=== PATIENT | male | born 1945 | race African-American/Black ===

== ENCOUNTER 2018-12-28 16:24 | Inpatient (IN) | payer MEDICARE, MEDICAID ==
[~2018-12-28] VITALS: Ht 185.4 cm; Wt 99.8 kg
--- NOTE | 2018-12-28 19:45 | NUR ---
NURSE NOTES: Received pt via [facility] transferred [facility] AOx4, able to ambulate with assist from [facility] to bed, denies any pain, no distress noted. Noted IV L AC #20 patent and intact. No sign of GI bleed at this time. Bed in lowest position and locked, side rails up x 2, call light within reach. Will admit pt to floor.
[2018-12-28 20:00] VITALS: BP 129/76
--- NOTE | 2018-12-28 20:30 | NUR ---
NURSE NOTES: Called and spoke with Dr. Meyer, admission orders obtained and read back. Will carry out orders.
[2018-12-28] MEDS ORDERED: Zolpidem 5mg tab ORAL PRN (20:45)
[2018-12-28] MEDS ORDERED: Albuterol 90mcg Inhaler 8gm INH PRN (20:45)
[2018-12-28] MEDS ORDERED: HYDROcodone/Acetamin 5/325 tab ORAL PRN (20:45)
[2018-12-28] MEDS: Tamsulosin 0.4mg cap ORAL SCH (21:00)
--- NOTE | 2018-12-28 22:00 | NUR ---
NURSE NOTES: Dr. Mary called inquired about pt. Informed MD no GI bleed at this time. Orders given and read back. Will carry out orders.
[2018-12-28] MEDS ORDERED: Sorbitol Solution UD 30ml ORAL ONE (22:15)
[2018-12-28 22:25] LABS: CREATINE KINASE 342 U/L (26-308)
[2018-12-28] MEDS: D5 1/2NS 1,000 ML IV SCH (23:37)
[2018-12-29] VITALS: BP 134/67
[2018-12-29] MEDS ORDERED: Sorbitol Solution UD 30ml ORAL ONE
--- NOTE | 2018-12-29 00:20 | NUR ---
NURSE NOTES: Noted bright red blood from pt rectum. Pt denies any discomfort, no distress noted. VSS.Will notify Dr. Meyer.
--- NOTE | 2018-12-29 00:22 | NUR ---
NURSE NOTES: Called and spoke with Dr. Meyer. Informed MD that pt is bleeding from rectum. No orders given. Will continue to monitor.
--- NOTE | 2018-12-29 00:30 | NUR ---
NURSE NOTES: MRSA culture and urine for Esonophil, K+ random, Na+ random, urinalysis collected and sent to lab. Unable to collect VRE due to rectal bleed.
[2018-12-29 00:53] LABS: APPEARANCE,URINE SLIGHTLY CLOUDY; BILIRUBIN, URINE NEGATIVE (NEGATIVE); COLOR,URINE PALE YELLOW; GLUCOSE, URINE (UA) NEGATIVE (NEGATIVE); KETONES,URINE 2+ (NEGATIVE); LEUKOCYTE ESTERASE ,URINE 2+ (NEGATIVE); NITRITE,URINE POSITIVE (NEGATIVE); PH,URINE 5 (4.5-8.0); PROTEIN,URINE NEGATIVE (NEGATIVE); UROBILINOGEN,URINE NORMAL MG/DL (0.0-1.0)
[2018-12-29] MEDS ORDERED: FERROUS FUMARA324 M1 PO (02:02)
[2018-12-29] MEDS ORDERED: PROSCAR5 MG ORAL (02:02)
[2018-12-29] MEDS ORDERED: NAPROXEN250 M1 PO (02:02)
[2018-12-29] MEDS ORDERED: LIORESAL20 MG ORAL (02:02)
[2018-12-29] MEDS ORDERED: PERMETHRIN60 GM TOPIC (02:02)
[2018-12-29] MEDS ORDERED: FLOMAX0.4 MG ORAL (02:02)
[2018-12-29] MEDS ORDERED: CYMBALTA20 MG ORAL (02:02)
[2018-12-29] MEDS ORDERED: VITAMIN D1000 UNI1 ORAL (02:02)
[2018-12-29] MEDS ORDERED: HYDROCORTISONE-30 GM TOPIC (02:02)
[2018-12-29] MEDS ORDERED: NORCO 10-325 T1 EACH ORAL (02:02)
[2018-12-29] MEDS ORDERED: ALBUTEROL2.5 MG/3 M INH (02:02)
[2018-12-29] MEDS ORDERED: ERGOCALCIF8000 UNIT1 PO (02:02)
[2018-12-29 04:00] VITALS: BP 133/70
--- NOTE | 2018-12-29 05:00 | NUR ---
NURSE NOTES: Pt had another rectal bleed this am. Unable to collect stool OB due pt rushed to go to the restroom. Will endorse to next nurse to collect stool OB.
[2018-12-29] MEDS: HYDROcodone/Acetamin 10/325 tab ORAL PRN ×2 (05:27→18:02)
[2018-12-29] MEDS: NovoLOG Insulin Flexpen SUBQ SCH ×4 (06:30→20:51)
[2018-12-29 06:51] LABS: BASOPHILS % (AUTO) 0.6 % (0.0-2.0); EOSINOPHILS % (AUTO) 2.9 % (0.0-3.0); HEMATOCRIT 37.8 % (42.0-52.0); HEMOGLOBIN 12.1 G/DL (14.2-18.0); INR 0.9 (0.9-1.1); LYMPHOCYTES % (AUTO) 30.8 % (20.0-45.0); MEAN CORPUSCULAR VOLUME 108 FL (80-99); MONOCYTES % (AUTO) 11.8 % (1.0-10.0); NEUTROPHILS % (AUTO) 53.9 % (45.0-75.0); PLATELET COUNT 148 K/UL (150-450); RED BLOOD COUNT 3.49 M/UL (4.70-6.10); RED CELL DISTRIBUTION WIDTH 11.8 % (11.6-14.8); WHITE BLOOD COUNT 4.7 K/UL (4.8-10.8)
[2018-12-29 07:16] LABS: ANION GAP 8 mmol/L (5-15); BLOOD UREA NITROGEN 18 mg/dL (7-18); CALCIUM 8.7 MG/DL (8.5-10.1); CARBON DIOXIDE 29 MMOL/L (21-32); CHLORIDE 109 MMOL/L (98-107); CREATININE 1.2 MG/DL (0.55-1.30); POTASSIUM 3.9 MMOL/L (3.5-5.1); SODIUM 146 MMOL/L (136-145)
[2018-12-29 07:19] LABS: LACTATE DEHYDROGENASE 181 U/L (81-234); PHOSPHORUS 2.9 MG/DL (2.5-4.9)
--- NOTE | 2018-12-29 07:20 | NUR ---
NURSE NOTES: Report received from GURU Virgen. Pt. awake finishing up with breakfast. In RA, denies any pain or SOB. L AC 20g IV running D51/2 Ns @75. Bed on lowest position, side rails upx2. Brakes engaged. Call light within easy reach.
[2018-12-29 07:21] LABS: % IRON SATURATION 33 % (15-50); IRON 73 ug/dL (50-175); TOTAL IRON BINDING CAPACITY 219 ug/dL (250-450)
--- NOTE | 2018-12-29 07:30 | NUR ---
NURSE NOTES: Instructed pt next time he needs to have a stool sample to collect in the hat. Pt verbalized understanding of instruction. Endorsed to next nurse.
--- NOTE | 2018-12-29 07:40 | NUR ---
HAND-OFF: Report given to GURU Garza. Pt in stable condition.
[2018-12-29 08:00] VITALS: BP 118/73
[2018-12-29] MEDS ORDERED: Fleet's Enema 133ml RECTAL SCH (09:00)
[2018-12-29] MEDS ORDERED: Bisacodyl EC 5mg tab ORAL SCH (09:00)
--- NOTE | 2018-12-29 09:08 | General Progress Note ---
Assessment/Plan Assessment/Plan: GI CONSULT Assessment - Rectal bleeding - macrocytosis with mild pancytopenia, ? MDS - Arthritis Recommendations - Clear liquid - GI preparation - colonoscopy tomorrow - check TSH Thank you Zak Alaniz MD Subjective Allergies: Coded Allergies: No Known Allergies (Unverified , 12/28/18) Objective Last 24 Hour Vital Signs Date Time Temp Pulse Resp B/P (MAP) Pulse Ox O2 Delivery O2 Flow Rate FiO2 12/29/18 08:00 97.7 55 18 118/73 (88) 97 12/29/18 04:00 97.8 50 18 133/70 (91) 97 12/29/18 00:00 98.4 48 17 134/67 (89) 96 12/28/18 22:42 Room Air 12/28/18 20:00 97.8 49 18 129/76 (93) 98 Intake and Output 12/28/18 12/29/18 19:00 07:00 Intake Total 775 ml Output Total 450 ml Balance 325 ml Intake Oral 250 ml IV Total 525 ml Output Urine Total 450 ml # Bowel Movements 1 Laboratory Tests 12/28/18 21:45: Uric Acid 3.5, Total Creatine Kinase 342H 12/29/18 00:00: Urine Color Pale yellow, Urine Appearance Slightly cloudy, Urine pH 5, Urine Specific [place] 1.015, Urine Protein Negative, Urine Glucose (UA) Negative, Urine Ketones 2+H, Urine Blood 1+H, Urine Nitrite PositiveH, Urine Bilirubin Negative, Urine Urobilinogen Normal, Urine Leukocyte Esterase 2+H, Urine RBC 0- 2H, Urine WBC 40-60H, Urine Squamous Epithelial Cells None, Urine Bacteria Few, Urine Eosinophils Few seen, Urine Random Sodium 200H, Urine Potassium Timed 40 12/29/18 05:20: White Blood Count 4.7L, Red Blood Count 3.49L, Hemoglobin 12.1L, Hematocrit 37.8L, Mean Corpuscular Volume 108H, Mean Corpuscular Hemoglobin 34.6H, Mean Corpuscular Hemoglobin Concent 31.9L, Red Cell Distribution Width 11.8, Platelet Count 148L, Mean Platelet Volume 7.1, Neutrophils (%) (Auto) 53.9, Lymphocytes (%) (Auto) 30.8, Monocytes (%) (Auto) 11.8H, Eosinophils (%) (Auto) 2.9, Basophils (%) (Auto) 0.6, Erythrocyte Sedimentation Rate 41H, Reticulocyte Count [Pending], Prothrombin Time 10.1, Prothromb Time International Ratio 0.9, Activated Partial Thromboplast Time 29, Sodium Level 146H, Potassium Level 3.9, Chloride Level 109H, Carbon Dioxide Level 29, Anion Gap 8, Blood Urea Nitrogen 18, Creatinine 1.2, Estimat Glomerular Filtration Rate , Glucose Level 77, Calcium Level 8.7, Phosphorus Level 2.9, Magnesium Level 1.8, Iron Level 73, Total Iron Binding Capacity 219L, Percent Iron Saturation 33, Unsaturated Iron Binding 146, Lactate Dehydrogenase 181, C-Reactive Protein, Quantitative < 0.4, Carcinoembryonic Antigen [Pending], Vitamin B12 Level 404, Folate 15.6 Height (Feet): 5 Height (Inches): 11.00 Weight (Pounds): 220 Zak Alaniz MD Dec 29, 2018 09:08
[2018-12-29] MEDS ORDERED: Nulytely 4L ORAL SCH (10:00)
--- NOTE | 2018-12-29 11:41 | NUR ---
NURSE NOTES: Per Pt. never had DM. Notified Dr. Sethi, he spoke to Pt. Confirmed no need for fingerstick blood sugar check.
[2018-12-29 12:00] VITALS: BP 131/68
--- NOTE | 2018-12-29 12:18 | Consultation ---
History of Present Illness General Date patient seen: Dec 29, 2018 Present Illness HPI 73 year old male with hx of prostate ca, s/p RT recently presented to [facility] with cc of rectal bleeding. After initial w/u pt was transferred to [facility] for further w/u. Currently he is sitting up in the bed and complaining why he can't eat. No more bloody stool since arrival at [facility]. Allergies: Coded Allergies: No Known Allergies (Unverified , 12/28/18) Medication History Scheduled Baclofen (Baclofen), 10 MG ORAL THREE TIMES A DAY, (Reported) Cholecalciferol (Vitamin D3)* (Vitamin D*), 2,000 UNITS ORAL ONCE A WEEK, ( Reported) Duloxetine (Cymbalta), 20 MG ORAL BID, (Reported) Ergocalciferol (Vitamin D2) (Ergocalciferol), 50,000 UNIT PO DAILY, (Reported) Ferrous Fumarate (Ferrous Fumarate), 325 MG PO DAILY, (Reported) Finasteride* (Proscar*), 5 MG ORAL DAILY, (Reported) Naproxen (Naproxen), 500 MG PO BID, (Reported) Permethrin* (Elimite*), 1 APPLIC TOPIC QHS, (Reported) Tamsulosin HCl (Flomax), 0.4 MG ORAL DAILY, (Reported) Scheduled PRN Albuterol Sulfate* (Albuterol Sulfate Hhn*), 3 ML INH Q6H PRN for Shortness of Breath, (Reported) Hydrocodone Bit/Acetaminophen 10-325* ([place] 10-325*), 1 TAB ORAL Q6H PRN for For Pain, (Reported) Hydrocortisone/Aloe Vera 1%* (Hydrocortisone-Aloe 1% Cream*), 1 APPLIC TOPIC Q6H PRN for Itching, (Reported) Patient History Healthcare decision maker N Resuscitation status Full Code Advanced Directive on File No Past Medical/Surgical History Past Medical/Surgical History: (1) Prostate cancer (2) Chronic renal disease (3) BPH (benign prostatic hyperplasia) (4) Diabetes mellitus (5) GI bleed (6) Hypertensive heart disease (7) History of hypertension Review of Systems Constitutional: Reports: no symptoms Physical Exam General Appearance: WD/WN, no apparent distress Lines, tubes and drains: peripheral HEENT: normocephalic, atraumatic Neck: non-tender, normal alignment Respiratory/Chest: chest wall non-tender, lungs clear Breasts: no masses Cardiovascular/Chest: normal rate Abdomen: normal bowel sounds, non tender Genitourinary/Rectal: normal genital exam Extremities: normal range of motion Last 24 Hour Vital Signs Date Time Temp Pulse Resp B/P (MAP) Pulse Ox O2 Delivery O2 Flow Rate FiO2 12/29/18 09:00 Room Air 12/29/18 08:00 97.7 55 18 118/73 (88) 97 12/29/18 04:00 97.8 50 18 133/70 (91) 97 12/29/18 00:00 98.4 48 17 134/67 (89) 96 12/28/18 22:42 Room Air 12/28/18 20:00 97.8 49 18 129/76 (93) 98 Intake and Output 12/28/18 12/29/18 19:00 07:00 Intake Total 775 ml Output Total 450 ml Balance 325 ml Intake Oral 250 ml IV Total 525 ml Output Urine Total 450 ml # Bowel Movements 1 Laboratory Tests Test 12/28/18 21:45 12/29/18 00:00 12/29/18 05:20 Uric Acid 3.5 MG/DL (2.6-7.2) Total Creatine Kinase 342 U/L (26-308) H Urine Color Pale yellow Urine Appearance Slightly cloudy Urine pH 5 (4.5-8.0) Urine Specific [place] 1.015 (1.005-1.035) Urine Protein Negative (NEGATIVE) Urine Glucose (UA) Negative (NEGATIVE) Urine Ketones 2+ (NEGATIVE) H Urine Blood 1+ (NEGATIVE) H Urine Nitrite Positive (NEGATIVE) H Urine Bilirubin Negative (NEGATIVE) Urine Urobilinogen Normal MG/DL (0.0-1.0) Urine Leukocyte Esterase 2+ (NEGATIVE) H Urine RBC 0-2 /HPF (0 - 0) H Urine WBC 40-60 /HPF (0 - 0) H Urine Squamous Epithelial Cells None /LPF (NONE/OCC) Urine Bacteria Few /HPF (NONE) Urine Eosinophils Few seen (NONE SEEN) Urine Random Sodium 200 mmol/L (20-110) H Urine Potassium Timed 40 mmol/L (12-62) White Blood Count 4.7 K/UL (4.8-10.8) L Red Blood Count 3.49 M/UL (4.70-6.10) L Hemoglobin 12.1 G/DL (14.2-18.0) L Hematocrit 37.8 % (42.0-52.0) L Mean Corpuscular Volume 108 FL (80-99) H Mean Corpuscular Hemoglobin 34.6 PG (27.0-31.0) H Mean Corpuscular Hemoglobin Concent 31.9 G/DL (32.0-36.0) L Red Cell Distribution Width 11.8 % (11.6-14.8) Platelet Count 148 K/UL (150-450) L Mean Platelet Volume 7.1 FL (6.5-10.1) Neutrophils (%) (Auto) 53.9 % (45.0-75.0) Lymphocytes (%) (Auto) 30.8 % (20.0-45.0) Monocytes (%) (Auto) 11.8 % (1.0-10.0) H Eosinophils (%) (Auto) 2.9 % (0.0-3.0) Basophils (%) (Auto) 0.6 % (0.0-2.0) Erythrocyte Sedimentation Rate 41 MM/HR (0-20) H Reticulocyte Count 1.8 % (0.5-2.0) Prothrombin Time 10.1 SEC (9.30-11.50) Prothromb Time International Ratio 0.9 (0.9-1.1) Activated Partial Thromboplast Time 29 SEC (23-33) Sodium Level 146 MMOL/L (136-145) H Potassium Level 3.9 MMOL/L (3.5-5.1) Chloride Level 109 MMOL/L (98-107) H Carbon Dioxide Level 29 MMOL/L (21-32) Anion Gap 8 mmol/L (5-15) Blood Urea Nitrogen 18 mg/dL (7-18) Creatinine 1.2 MG/DL (0.55-1.30) Estimat Glomerular Filtration Rate mL/min (>60) Glucose Level 77 MG/DL (74-106) Calcium Level 8.7 MG/DL (8.5-10.1) Phosphorus Level 2.9 MG/DL (2.5-4.9) Magnesium Level 1.8 MG/DL (1.8-2.4) Iron Level 73 ug/dL (50-175) Total Iron Binding Capacity 219 ug/dL (250-450) L Percent Iron Saturation 33 % (15-50) Unsaturated Iron Binding 146 ug/dL (112-346) Lactate Dehydrogenase 181 U/L (81-234) C-Reactive Protein, Quantitative < 0.4 mg/dL (0.00-0.90) Carcinoembryonic Antigen Pending Vitamin B12 Level 404 PG/ML (193-986) Folate 15.6 NG/ML (8.6-58.9) Height (Feet): 5 Height (Inches): 11.00 Weight (Pounds): 220 Medications Current Medications Medications (Trade) Dose Ordered Sig/Pee Route PRN Reason Start Time Stop Time Status Last Admin Dose Admin Acetaminophen/ Hydrocodone Bitart ([place] 10/325) 1 tab Q6HR PRN ORAL Pain Scale (6-10) 12/28/18 20:45 01/04/19 20:44 12/29/18 05:27 Acetaminophen/ Hydrocodone Bitart ([place] 5/325) 1 tab Q6H PRN ORAL For Pain 12/28/18 20:45 01/04/19 20:44 Albuterol Sulfate (Proventil MDI) 2 puff Q6HR PRN INH Shortness of Breath 12/28/18 20:45 01/27/19 20:44 Baclofen (Lioresal) 10 mg THREE TIMES A DAY PRN ORAL Shortness of Breath 12/28/18 20:45 01/27/19 20:44 Dextrose (Dextrose 50%) 25 ml Q30M PRN IV Hypoglycemia 12/28/18 21:15 01/27/19 21:14 Dextrose (Dextrose 50%) 50 ml Q30M PRN IV Hypoglycemia 12/28/18 21:15 01/27/19 21:14 Dextrose/Sodium Chloride 1,000 ml @ 75 mls/hr [id number] IV 12/28/18 22:15 01/27/19 22:14 12/28/18 23:37 Duloxetine HCl (Cymbalta) 20 mg BID ORAL 12/29/18 09:00 01/28/19 08:59 12/29/18 08:35 Finasteride (Proscar) 5 mg DAILY ORAL 12/29/18 09:00 01/28/19 08:59 12/29/18 08:35 Insulin Aspart (NovoLOG) BEFORE MEALS AND HS SUBQ 12/29/18 06:30 01/28/19 06:29 Ondansetron HCl (Zofran) 4 mg Q4H PRN IVP Nausea & Vomiting 12/29/18 02:15 01/28/19 02:14 Sodium Phosphate (Fleet's Sodium Phosl Enema) 133 ml ONCE RECTAL 12/30/18 06:00 12/30/18 07:30 Tamsulosin HCl (Flomax) 0.4 mg BEDTIME ORAL 12/28/18 21:00 01/27/19 20:59 12/28/18 21:00 Zolpidem Tartrate (Ambien) 5 mg HSPRN PRN ORAL Insomnia 12/28/18 20:45 01/04/19 20:44 Assessment/Plan Problem List: (1) History of hypertension ICD Codes: Z86.79 - Personal history of other diseases of the circulatory system SNOMED: 343850029 (2) Hypertensive heart disease ICD Codes: I11.9 - Hypertensive heart disease without heart failure SNOMED: 95020409 (3) BPH (benign prostatic hyperplasia) ICD Codes: N40.0 - Benign prostatic hyperplasia without lower urinary tract symptoms SNOMED: 168485691 (4) Chronic renal disease ICD Codes: N18.9 - Chronic kidney disease, unspecified SNOMED: 396022748 (5) Prostate cancer ICD Codes: C61 - Malignant neoplasm of prostate SNOMED: 223673466 (6) S/P radiation therapy ICD Codes: Z92.3 - Personal history of irradiation SNOMED: 299623368, 248366346, 536107506 Assessment/Plan: NPO GI evaluation prbc prn check electrolytes symptomatic treatment dvt prophylaxis. Apoorva Sethi MD Dec 29, 2018 12:17
[2018-12-29] MEDS: D5 1/2NS 1,000 ML IV SCH (13:38)
--- NOTE | 2018-12-29 15:00 | NUR ---
NURSE NOTES: Refusing to drink Golytely. Educated the need. Will continue to encourage.
--- NOTE | 2018-12-29 15:59 | NUR ---
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 97.8 HR 49 RR 18 B/P 129/78 H/H 12.1/37.8 WBC 4.7 ESR 41 TCK 342 NA 146 TIBC 219 UA+ KETONES,PROTEIN,NITRITES,LEUKOCYTE ESTERASE,WBC,RBC IS: IVF D5NS @75ML/HR CYMBALTA PO MED/SURG STATUS MED/SURG STATUS DCP RETURN HOME
[2018-12-29 16:00] VITALS: BP 127/58
--- NOTE | 2018-12-29 16:30 | Consultation ---
DATE OF CONSULTATION: 12/29/2018 GASTROENTEROLOGY CONSULTATION CONSULTING PHYSICIAN: Zak Alaniz M.D. CHIEF COMPLAINT: I was asked to see this patient by Dr. Caden Meyer for evaluation of gastrointestinal bleeding. HISTORY OF PRESENT ILLNESS: The patient is a pleasant 73-year-old, man, who is in this hospital for the first time. He complains of a 3-day history of hematochezia, which is dark red. The hematochezia is painless and for the first time. He states his last colonoscopy was in early 2018 at [facility]. When I reviewed the record there and there is no such procedure in the hospital. The patient cannot recall where else this had been done, but he is thinking about it. The patient denies any significant abdominal pain although he has a minimal degree of discomfort in the pelvic area. He has not had a history of hemorrhoids. He had an extensive past history of smoking. PAST MEDICAL HISTORY: History of diabetes, history of hypertension, history of arthritis and back and joint problems requiring a walker. MEDICATIONS AT HOME: Include albuterol, acetaminophen, baclofen, Cymbalta, vitamin D, iron, Proscar, Naprosyn, , Flomax. FAMILY HISTORY: Noncontributory. SOCIAL HISTORY: The patient has had an extensive history of smoking. He still smokes 5 cigarettes a day. He does not drink alcohol. ALLERGIES: None. REVIEW OF SYSTEMS: Otherwise negative. PHYSICAL EXAMINATION: GENERAL: A pleasant, man, seen in his room. HEENT: Normocephalic and atraumatic. Sclerae anicteric. Dentition was poor. NECK: Supple. CHEST: Clear to auscultation. CARDIOVASCULAR: Revealed a regular rate. ABDOMEN: Soft with good bowel sounds. There is no organomegaly. RECTAL: Revealed brown to dark red stools. EXTREMITIES: Revealed no edema. LABORATORY DATA: Noted. ASSESSMENT: This patient presents with hematochezia with a relatively preserved hematocrit. Differential diagnosis will include ischemic colitis versus hemorrhoidal bleeding versus diverticular bleeding. Colonic pathology such as malignancy or polyps will obvious be a consideration as well. There patient to undergo a colonoscopy at this time to evaluate the site and nature of bleeding in order to determine treatment algorithm. The indications, risks, alternatives, and possible complications of the procedure were explained to the patient and informed consent was obtained. In addition, the patient appears to have some degree of macrocytosis with normal B12 level and folic acid. He also has some degree of mild pancytopenia. I will consider a Hematology consultation to determine if the patient has some myelodysplastic syndrome. RECOMMENDATIONS: Per above discussion and per orders in the chart. The patient will be scheduled for colonoscopy tomorrow. Thank you for asking me to participate in the care of this patient. Zak Alaniz M.D. DR: ROCK JOB#: [id number] CC:
--- NOTE | 2018-12-29 17:27 | History & Physical ---
History and Physical History & Physicial Dictated for Int Med-Dr Meyer no. [id number]. Arsen Munoz MD Dec 29, 2018 17:27
--- NOTE | 2018-12-29 18:45 | History and Physical Report ---
DATE OF ADMISSION: 12/28/2018 CHIEF COMPLAINT: The patient is a 73-year-old male, who presents with a chief complaint of rectal bleeding. HISTORY OF PRESENT ILLNESS: Began yesterday, December 28, 2018. The patient began to experience rectal bleeding. The blood is dark red in color. The patient initially presented to [facility] emergency room. The patient was transferred to [facility] for insurance purposes. The patient is admitted for gastrointestinal hemorrhage. REVIEW OF SYSTEMS: CONSTITUTIONAL: The patient denies weight loss or weight gain. The patient denies fevers or chills. HEENT: The patient denies ear or throat pain. The patient denies headache. CARDIOVASCULAR: The patient denies palpitations or chest pain. CHEST: The patient denies wheeze or shortness of breath. ABDOMINAL: The patient denies nausea, vomiting, diarrhea, or constipation. The patient does complain of rectal bleeding as above. GENITOURINARY: The patient denies dysuria or increased frequency of urination. NEUROMUSCULAR: The patient denies seizures or generalized weakness. PAST MEDICAL HISTORY: Significant for, 1. Chronic obstructive pulmonary disease. 2. Benign prostatic hypertrophy. 3. Chronic low back pain. PAST SURGICAL HISTORY: The patient denies. CURRENT MEDICATIONS: 1. Cymbalta 20 mg p.o. twice daily. 2. Iron sulfate 325 mg p.o. daily. 3. Proscar 5 mg p.o. daily. 4. Vitamin D2 50,000 units 1 tablet p.o. weekly. 5. Albuterol metered-dose inhaler two puffs p.o. q.i.d. p.r.n. 6. Naprosyn 500 mg one tablet p.o. twice daily. 7. [place] 10/325 mg one tablet p.o. q.6 h. p.r.n. 8. Flomax 0.4 mg p.o. daily. 9. Tramadol 50 mg p.o. 1 tablet p.o. twice daily. ALLERGIES: No known drug allergies. SOCIAL HISTORY: The patient is single and lives alone. The patient admits to tobacco use of one pack per day. The patient denies alcohol use. PHYSICAL EXAMINATION: VITAL SIGNS: Temperature 98.4, respirations 20, pulse 50, and blood pressure 158/74. GENERAL: The patient is a well-developed and well-nourished male, in no apparent distress. HEENT: Eyes, pupils are equal and responsive to light and accommodation. Extraocular movements are intact. NECK: Supple without lymphadenopathy. CHEST: Lungs are clear to auscultation bilaterally without wheezes or rales. CARDIOVASCULAR: Regular rhythm and rate. S1 and S2 are normal without murmurs, rubs, or gallops. ABDOMEN: Soft, nontender, and nondistended. Positive bowel sounds. No evidence of hepatosplenomegaly. Currently, no rebound or guarding noted. EXTREMITIES: Negative for clubbing, cyanosis, or edema. RECTAL/GENITAL: Refused. NEUROLOGIC: Cranial nerves II through XII are grossly intact without focal deficits. Motor strength is 5/5 bilaterally. Deep tendon reflexes are 2+ plantar. LABORATORY STUDIES: WBC 4.6, hemoglobin 11.0, hematocrit 35.1, and platelets 144,000. Sodium 143, potassium 3.8, chloride 107, CO2 28, BUN 20, and creatinine 1.1. Glucose 93. ASSESSMENT: This is a 73-year-old male. 1. Rectal hemorrhage. 2. Chronic obstructive pulmonary disease. 3. Benign prostatic hypertrophy. 4. Low back pain. 5. History of prostate cancer. TREATMENT: 1. Rectal hemorrhage. A Gastroenterology consultation has been obtained with Dr. Zak Alaniz. The patient is scheduled for colonoscopy. We will follow recommendations of Gastroenterology. 2. Chronic obstructive pulmonary disease. Continue albuterol metered-dose inhaler as above. 3. Benign prostatic hypertrophy. Continue Flomax and Proscar as above. 4. Low back pain. Continue Naprosyn as above. 5. History of prostate cancer. Arsen Munoz M.D. DR: ROBERTO JOB#: [id number] CC:
--- NOTE | 2018-12-29 19:11 | NUR ---
NURSE NOTES: Clarified with pharmacist Edelmira duplicate order for Cymbalta. Duplicate to be cancelled by pharmacist.
--- NOTE | 2018-12-29 19:30 | NUR ---
NURSE NOTES: Received pt in bed, AOx4, denies any pain, no rectal bleeding noted at this time. IV L AC patent and intact. IV fluid infusing as ordered. Instructed pt that me needs to finish drinking the Golytely by 12 midnight. Encouraged pt to keep drinking Golytely. Verbalized understanding. Bed in lowest position and locked, side rails up x 2, call light within reach. Will continue to monitor.
--- NOTE | 2018-12-29 19:45 | NUR ---
HAND-OFF: Report given to GURU Virgen. Pt in stable condition. Plan of care endorsed.
[2018-12-29 20:00] VITALS: BP 131/78
[2018-12-29] MEDS: Tamsulosin 0.4mg cap ORAL SCH ×2 (20:49→20:52)
[2018-12-30] VITALS (8 sets, daily range): BP systolic 90–144; BP diastolic 52–80
[2018-12-30] MEDS: HYDROcodone/Acetamin 10/325 tab ORAL PRN (00:45)
[2018-12-30] MEDS: D5 1/2NS 1,000 ML IV SCH (00:55)
--- NOTE | 2018-12-30 05:57 | NUR ---
NURSE NOTES: Pt drank 3000 ml of Golytely by midnight. Fleet enema given. Bowel return clear. No rectal bleed noted at this time.
[2018-12-30] MEDS ORDERED: Fleet's Enema 133ml RECTAL SCH (06:00)
[2018-12-30] MEDS: NovoLOG Insulin Flexpen SUBQ SCH ×2 (06:30→10:42)
--- NOTE | 2018-12-30 06:45 | NUR ---
NURSE NOTES: Taken down to GI lab for procedure. Pt denies any pain, no distress noted. IV patent and intact. Endorsed pt to transporter.
[2018-12-30] MEDS ORDERED: NS 500ML IVPB ONE (06:50)
[2018-12-30 06:56] LABS: ANION GAP 5 mmol/L (5-15); BLOOD UREA NITROGEN 9 mg/dL (7-18); CALCIUM 8.6 MG/DL (8.5-10.1); CARBON DIOXIDE 30 MMOL/L (21-32); CHLORIDE 109 MMOL/L (98-107); CREATININE 1.1 MG/DL (0.55-1.30); POTASSIUM 3.7 MMOL/L (3.5-5.1); SODIUM 144 MMOL/L (136-145)
[2018-12-30] MEDS ORDERED: Lidocaine 1% MPF 10mg/ml 5ml ONE (07:00)
[2018-12-30] MEDS ORDERED: Propofol 200mg/20ml IV ONE (07:00)
[2018-12-30 07:06] LABS: BASOPHILS % (AUTO) 0.6 % (0.0-2.0); EOSINOPHILS % (AUTO) 2.6 % (0.0-3.0); HEMATOCRIT 35.3 % (42.0-52.0); HEMOGLOBIN 11.6 G/DL (14.2-18.0); LYMPHOCYTES % (AUTO) 33.3 % (20.0-45.0); MEAN CORPUSCULAR VOLUME 107 FL (80-99); MONOCYTES % (AUTO) 11.1 % (1.0-10.0); NEUTROPHILS % (AUTO) 52.4 % (45.0-75.0); PLATELET COUNT 141 K/UL (150-450); RED BLOOD COUNT 3.31 M/UL (4.70-6.10); RED CELL DISTRIBUTION WIDTH 11.6 % (11.6-14.8); WHITE BLOOD COUNT 4.6 K/UL (4.8-10.8)
--- NOTE | 2018-12-30 07:06 | General Progress Note ---
Assessment/Plan Assessment/Plan: Assessment - Rectal bleeding - macrocytosis with mild pancytopenia, ? MDS - Arthritis Recommendations - NPO - colonoscopy today - f/u TSH --> normal Subjective Allergies: Coded Allergies: No Known Allergies (Unverified , 12/28/18) Subjective Feels OK (++) BM with prep bleeding resolve POST PROCEDURE ADDENDUM Colonoscopy: - Diminutive polyps removed (TV colonx2, Descending colon x2, sigmoid colon) - mild to mod diverticulosis (likely source of LGIB) - No blood seen in GI tract Objective Last 24 Hour Vital Signs Date Time Temp Pulse Resp B/P (MAP) Pulse Ox O2 Delivery O2 Flow Rate FiO2 12/30/18 04:00 98.7 55 20 115/66 (82) 96 12/30/18 00:00 97.9 50 20 127/62 (83) 96 12/29/18 21:00 Room Air 12/29/18 20:00 97.6 51 18 131/78 (95) 96 12/29/18 16:00 97.8 54 18 127/58 (81) 96 12/29/18 12:00 97.4 50 18 131/68 (89) 98 12/29/18 09:00 Room Air 12/29/18 08:00 97.7 55 18 118/73 (88) 97 Intake and Output 12/29/18 12/30/18 18:59 06:59 Intake Total 915 ml 3975 ml Balance 915 ml 3975 ml Intake Oral 600 ml 3000 ml IV Total 75 ml 975 ml Other 240 ml # Voids 3 # Bowel Movements 3 4 Laboratory Tests 12/30/18 05:20: White Blood Count [Pending], Red Blood Count [Pending], Hemoglobin [Pending], Hematocrit [Pending], Mean Corpuscular Volume [Pending], Mean Corpuscular Hemoglobin [Pending], Mean Corpuscular Hemoglobin Concent [Pending], Red Cell Distribution Width [Pending], Platelet Count [Pending], Mean Platelet Volume [ Pending], Neutrophils (%) (Auto) [Pending], Lymphocytes (%) (Auto) [Pending], Monocytes (%) (Auto) [Pending], Eosinophils (%) (Auto) [Pending], Basophils (%) (Auto) [Pending], Sodium Level 144, Potassium Level 3.7, Chloride Level 109H, Carbon Dioxide Level 30, Anion Gap 5, Blood Urea Nitrogen 9, Creatinine 1.1, Estimat Glomerular Filtration Rate , Glucose Level 96, Calcium Level 8.6, Thyroid Stimulating Hormone (TSH) 1.709 Height (Feet): 6 Height (Inches): 1.00 Weight (Pounds): 220 Objective WDWN NCAT supple CTA RRR Abd soft NT ND no edema non focal Zak Alaniz MD Dec 30, 2018 07:06
--- NOTE | 2018-12-30 07:07 | Pre-Procedure Note/Attestation ---
Pre-Procedure Note/Attestation Complete Prior to Procedure Planned Procedure: not applicable Procedure Narrative: colon Indications for Procedure Pre-Operative Diagnosis: brbpr Attestation I attest that I discussed the nature of the procedure; its benefits; risks and complications; and alternatives (and the risks and benefits of such alternatives ), prior to the procedure, with the patient (or the patient's legal electronics parts sales representative). I attest that, if there was a reasonable possibility of needing a blood transfusion, the patient (or the patient's legal electronics parts sales representative) was given the [facility] standardized written summary, pursuant to the Zay Altheimer Blood Safety Act ([place] Health and Safety Code # 1645, as amended). I attest that I re-evaluated the patient just prior to the surgery and that there has been no change in the patient's H&P, except as documented below: Zak Alaniz MD Dec 30, 2018 07:07
--- NOTE | 2018-12-30 07:16 | Anethesia Preoperative Eval ---
Anesthesia Pre-op PMH/ROS General Date of Evaluation: Dec 30, 2018 Time of Evaluation: 06:50 Anesthesiologist: Velma East CRNA ASA Score: ASA 3 Mallampati Score Class I : Soft palate, uvula, fauces, pillars visible Class II: Soft palate, uvula, fauces visible Class III: Soft palate, base of uvula visible Class IV: Only hard plate visible Mallampati Classification: Class III Surgeon: Gabe Anesthesia History: none Social History: smoking Family History: no anesthesia problems Allergies: Coded Allergies: No Known Allergies (Unverified , 12/28/18) Medications: see eMAR Patient NPO?: Yes NPO Date: Dec 30, 2018 NPO Time: 00:00 Past Medical History Cardiovascular: Reports: HTN, CAD, other - hypercholesterolemia Pulmonary: Reports: asthma, COPD Gastrointestinal/Genitourinary: Reports: GERD, CRI, other - prostate CA s/p radiation Endocrine: Reports: DM HEENT: Reports: other - hx of ruptured globe Hematology/Immune: Reports: anemia Musculoskeletal/Integumentary: Reports: OA, other - Lower back pain PMH Narrative: see above PSxH Narrative: tonsillectomy; ruptured globe Anesthesia Pre-op Phys. Exam Physician Exam Last Vital Signs Date Time Temp Pulse Resp B/P (MAP) Pulse Ox O2 Delivery O2 Flow Rate FiO2 12/30/18 04:00 98.7 55 20 115/66 (82) 96 12/29/18 21:00 Room Air Constitutional: NAD Cardiovascular: RRR Respiratory: CTA Gastrointestinal: S/NT/ND Airway Exam Mallampati Score: Class III MO: full Neck: FROM TMD: > 3 FB ROM: full Teeth: missing Dentures: upper Anesthesia Pre-op A/P Labs Hematology Test 12/30/18 05:20 White Blood Count 4.6 K/UL (4.8-10.8) L Red Blood Count 3.31 M/UL (4.70-6.10) L Hemoglobin 11.6 G/DL (14.2-18.0) L Hematocrit 35.3 % (42.0-52.0) L Mean Corpuscular Volume 107 FL (80-99) H Mean Corpuscular Hemoglobin 35.1 PG (27.0-31.0) H Mean Corpuscular Hemoglobin Concent 32.8 G/DL (32.0-36.0) Red Cell Distribution Width 11.6 % (11.6-14.8) Platelet Count 141 K/UL (150-450) L Mean Platelet Volume 8.7 FL (6.5-10.1) Neutrophils (%) (Auto) 52.4 % (45.0-75.0) Lymphocytes (%) (Auto) 33.3 % (20.0-45.0) Monocytes (%) (Auto) 11.1 % (1.0-10.0) H Eosinophils (%) (Auto) 2.6 % (0.0-3.0) Basophils (%) (Auto) 0.6 % (0.0-2.0) Chemistry Test 12/30/18 05:20 Sodium Level 144 MMOL/L (136-145) Potassium Level 3.7 MMOL/L (3.5-5.1) Chloride Level 109 MMOL/L (98-107) H Carbon Dioxide Level 30 MMOL/L (21-32) Anion Gap 5 mmol/L (5-15) Blood Urea Nitrogen 9 mg/dL (7-18) Creatinine 1.1 MG/DL (0.55-1.30) Estimat Glomerular Filtration Rate mL/min (>60) Glucose Level 96 MG/DL (74-106) Calcium Level 8.6 MG/DL (8.5-10.1) Thyroid Stimulating Hormone (TSH) 1.709 uiU/mL (0.358-3.740) Studies Pre-op Studies: EKG - NSR Risk Assessment & Plan Assessment: ASA 3, ok to proceed Plan: MAC Status Change Before Surgery: No Pre-Antibiotics Given Within 1 Hr of Incision: Velma Mcnally CRNA Dec 30, 2018 07:16
--- NOTE | 2018-12-30 07:25 | NUR ---
HAND-OFF: Report given to GURU Carpenter. Pt off the unit.
--- NOTE | 2018-12-30 07:39 | Endoscopy Procedure Note ---
Endoscopy Procedure Note General Indication for Procedure: LGIB Procedures Performed: colonoscopy Operative Findings/Diagnosis: colon polyps (TV x2, Desc, Desc #2, sig) Specimen: yes Pt Tolerated Procedure Well: Yes Estimated Blood Loss: none Anesthesia Anesthesiologist: see report Anesthesia: MAC Medications Medication Given: see anesthesia record Inserted Devices Implant(s) used?: No GI Core Measures 50 yrs or older w/o bx or poly: Not Applicable 10yrs. F/U recommended: Not Applicable Zak Alaniz MD Dec 30, 2018 07:39
--- NOTE | 2018-12-30 07:40 | Brief Operative Note ---
Immediate Post Operative Note Operative Note Chief Complaint: BRB Pre-op Diagnosis: brbpr Procedure: colon Bx Post-op Diagnosis: Polyps, diverticulosis Surgeon: patricia Anesthesiologist: see report Anesthesia: moderate sedation Specimen: yes Complications: none Fluids: recorded Implant(s) used?: No Zak Alaniz MD Dec 30, 2018 07:40
--- NOTE | 2018-12-30 07:42 | NUR ---
NURSE NOTES: Received pt from GURU Virgen. Pt off unit getting colonoscopy. Awaiting pt arrival.
--- NOTE | 2018-12-30 07:51 | Immediate Post-Op Evaluation ---
Immediate Post-Op Evalulation Immediate Post-Op Evalulation Procedure: Colonoscopy with biopsies Date of Evaluation: Dec 30, 2018 Time of Evaluation: 07:50 IV Fluids: 0.9 NS 250 ml Blood Pressure Systolic: 090 Blood Pressure Diastolic: 53 Pulse Rate: 51 Respiratory Rate: 14 O2 Sat by Pulse Oximetry: 100 Temperature (Fahrenheit): 98.0 Pain Score (1-10): 0 Nausea: No Vomiting: No Complications none Patient Status: awake, patent Hydration Status: adequate Given Within 1 Hr of Incision: Velma Mcnally CRNA Dec 30, 2018 07:51
[2018-12-30] MEDS ORDERED: Tamsulosin 0.4mg cap ORAL SCH (09:00)
--- NOTE | 2018-12-30 10:38 | 48 Hour Post Anesthesia Eval ---
Post Anesthesia Evaluation Procedure: Colonoscopy with biopsies Date of Evaluation: Dec 30, 2018 Time of Evaluation: 10:37 Blood Pressure Systolic: 144 0: 80 Pulse Rate: 54 Respiratory Rate: 20 Temperature (Fahrenheit): 98.3 O2 Sat by Pulse Oximetry: 98 Airway: patent Nausea: No Vomiting: No Pain Intensity: 0 Hydration Status: adequate Cardiopulmonary Status: stable Mental Status/LOC: patient returned to baseline Follow-up Care/Observations: per hospitalist Post-Anesthesia Complications: none Follow-up care needed: N/A Velma East CRNA Dec 30, 2018 10:38
--- NOTE | 2018-12-30 11:14 | Pulmonology Progress Note ---
Assessment/Plan Problems: (1) Rectal bleeding (2) History of hypertension (3) Hypertensive heart disease (4) BPH (benign prostatic hyperplasia) (5) Chronic renal disease (6) Prostate cancer (7) S/P radiation therapy Assessment/Plan h/h stable colonoscopy done, no bleeding seen monitor BP check PSA symptomatic treatment dvt prophylaxis. Subjective ROS Limited/Unobtainable: No Constitutional: Reports: no symptoms HEENT: Repors: no symptoms Allergies: Coded Allergies: No Known Allergies (Unverified , 12/28/18) Objective Last 24 Hour Vital Signs Date Time Temp Pulse Resp B/P (MAP) Pulse Ox O2 Delivery O2 Flow Rate FiO2 12/30/18 10:38 54 20 98 12/30/18 09:04 54 20 144/80 (101) 98 12/30/18 09:00 Room Air 12/30/18 08:05 98.3 45 22 122/54 99 Room Air 12/30/18 07:55 42 15 106/75 99 Room Air 12/30/18 07:51 51 14 100 12/30/18 07:50 46 21 99/52 99 Room Air 12/30/18 07:45 98.0 56 15 90/53 99 Room Air 12/30/18 04:00 98.7 55 20 115/66 (82) 96 12/30/18 00:00 97.9 50 20 127/62 (83) 96 12/29/18 21:00 Room Air 12/29/18 20:00 97.6 51 18 131/78 (95) 96 12/29/18 16:00 97.8 54 18 127/58 (81) 96 12/29/18 12:00 97.4 50 18 131/68 (89) 98 Intake and Output 12/29/18 12/30/18 18:59 06:59 Intake Total 915 ml 3975 ml Balance 915 ml 3975 ml Intake Oral 600 ml 3000 ml IV Total 75 ml 975 ml Other 240 ml # Voids 3 # Bowel Movements 3 4 General Appearance: WD/WN HEENT: normocephalic, anicteric Respiratory/Chest: chest wall non-tender, lungs clear Cardiovascular: no JVD Abdomen: soft, non tender, no scars Extremities: no cyanosis 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 Microbiology Date/Time Source Procedure Growth Status 12/29/18 00:00 Urine,Clean Catch Urine Culture - Preliminary Gram Negative Bacillus 1 Resulted Laboratory Tests 12/30/18 05:20: White Blood Count 4.6L, Red Blood Count 3.31L, Hemoglobin 11.6L, Hematocrit 35.3L, Mean Corpuscular Volume 107H, Mean Corpuscular Hemoglobin 35.1H, Mean Corpuscular Hemoglobin Concent 32.8, Red Cell Distribution Width 11.6, Platelet Count 141L, Mean Platelet Volume 8.7, Neutrophils (%) (Auto) 52.4, Lymphocytes ( %) (Auto) 33.3, Monocytes (%) (Auto) 11.1H, Eosinophils (%) (Auto) 2.6, Basophils (%) (Auto) 0.6, Sodium Level 144, Potassium Level 3.7, Chloride Level 109H, Carbon Dioxide Level 30, Anion Gap 5, Blood Urea Nitrogen 9, Creatinine 1.1, Estimat Glomerular Filtration Rate , Glucose Level 96, Calcium Level 8.6, Thyroid Stimulating Hormone (TSH) 1.709 Current Medications Medications (Trade) Dose Ordered Sig/Pee Route PRN Reason Start Time Stop Time Status Last Admin Dose Admin Acetaminophen/ Hydrocodone Bitart ([place] 10/325) 1 tab Q6HR PRN ORAL Pain Scale (6-10) 12/28/18 20:45 01/04/19 20:44 12/30/18 00:45 Acetaminophen/ Hydrocodone Bitart ([place] 5/325) 1 tab Q6H PRN ORAL For Pain 12/28/18 20:45 01/04/19 20:44 Albuterol Sulfate (Proventil MDI) 2 puff Q6HR PRN INH Shortness of Breath 12/28/18 20:45 01/27/19 20:44 Baclofen (Lioresal) 10 mg THREE TIMES A DAY PRN ORAL Shortness of Breath 12/28/18 20:45 01/27/19 20:44 Dextrose (Dextrose 50%) 25 ml Q30M PRN IV Hypoglycemia 12/28/18 21:15 01/27/19 21:14 Dextrose (Dextrose 50%) 50 ml Q30M PRN IV Hypoglycemia 12/28/18 21:15 01/27/19 21:14 Dextrose/Sodium Chloride 1,000 ml @ 75 mls/hr [id number] IV 12/28/18 22:15 01/27/19 22:14 12/29/18 13:38 Duloxetine HCl (Cymbalta) 20 mg BID ORAL 12/29/18 09:00 01/28/19 08:59 12/30/18 08:33 Finasteride (Proscar) 5 mg DAILY ORAL 12/29/18 09:00 01/28/19 08:59 12/30/18 08:34 Insulin Aspart (NovoLOG) BEFORE MEALS AND HS SUBQ 12/29/18 06:30 01/28/19 06:29 Ondansetron HCl (Zofran) 4 mg Q4H PRN IVP Nausea & Vomiting 12/29/18 02:15 01/28/19 02:14 Tamsulosin HCl (Flomax) 0.4 mg BEDTIME ORAL 12/28/18 21:00 01/27/19 20:59 12/29/18 20:52 Zolpidem Tartrate (Ambien) 5 mg HSPRN PRN ORAL Insomnia 12/28/18 20:45 01/04/19 20:44 Apoorva Sethi MD Dec 30, 2018 11:14
--- NOTE | 2018-12-30 11:50 | NUR ---
NURSE NOTES: Called and left a message with Dr. Sethi regarding pts home meds for D/C. Awaiting call back.
[2018-12-30] MEDS ORDERED: D5 1/2NS 1000ml IV ONE (12:57)
--- NOTE | 2018-12-30 14:26 | NUR ---
NURSE NOTES: Removed ID band and IV site. Discharged pt with taxi voucher. Pt stable.
--- NOTE | 2018-12-30 16:32 | Discharge Summary ---
Discharge Summary Hospital Course Date of Admission Dec 28, 2018 at 19:45 Date of Discharge Dec 30, 2018 at 14:25 Admitting Diagnosis TERRANCE Newman is a 73 year old male who was admitted on Dec 28, 2018 at 19:45 for Rectal Bleed Hospital Course Last 24 Hour Vital Signs Date Time Temp Pulse Resp B/P (MAP) Pulse Ox O2 Delivery O2 Flow Rate FiO2 12/30/18 12:00 97.7 62 18 101/62 (75) 96 12/30/18 10:38 54 20 98 12/30/18 09:04 54 20 144/80 (101) 98 12/30/18 09:00 Room Air 12/30/18 08:05 98.3 45 22 122/54 99 Room Air 12/30/18 07:55 42 15 106/75 99 Room Air 12/30/18 07:51 51 14 100 12/30/18 07:50 46 21 99/52 99 Room Air 12/30/18 07:45 98.0 56 15 90/53 99 Room Air 12/30/18 04:00 98.7 55 20 115/66 (82) 96 12/30/18 00:00 97.9 50 20 127/62 (83) 96 12/29/18 21:00 Room Air 12/29/18 20:00 97.6 51 18 131/78 (95) Discharge Discharge Disposition Patient was discharged to Caden Meyer MD Dec 30, 2018 16:32
--- NOTE | 2018-12-30 21:15 | Discharge Summary ---
DATE OF ADMISSION: 12/28/2018 HOSPITAL COURSE: This 73-year-old gentleman with past medical history significant for COPD, BPH, history of prostate cancer, history of chronic lower back pain, who presented to the hospital complaining about rectal bleeding. Initially, the patient was seen at [facility] and subsequently was transferred to [facility] for further evaluation and workup. Shortly after initial evaluation, the patient was admitted to the hospital and Dr. Zak Alaniz from Gastroenterology, Dr. Sethi from Pulmonary Critical Care was consulted. The patient underwent colonoscopy and noted colonic polyp as well as hemorrhoids. The patient's status improved and subsequently was discharged home today to be followed by as outpatient with Dr. Alaniz. FINAL DIAGNOSES: 1. Lower rectal bleeding, most likely secondary to the hemorrhoidal bleeding. 2. Macrocytic with mild pancytopenia 3. Arthritis. 4. BPH. 5. COPD. MEDICATIONS ON DISCHARGE: Continue discharge medication list. ACTIVITY: As tolerated. DIET: Regular diet. Caden Meyer M.D. DR: Berry JOB#: [id number] CC:
--- NOTE | 2018-12-31 04:00 | Operative Note - Dictated ---
GASTROENTEROLOGY PROCEDURE PROCEDURE: Colonoscopy with biopsy. SURGEON: Zak Alaniz M.D. PRE-ENDOSCOPIC DIAGNOSIS: Hematochezia. POST-ENDOSCOPIC DIAGNOSES: 1. Diminutive polyps x2 in the ascending colon, status biopsy removal. 2. Diminutive polyps in the transverse colon, status post biopsy removal. 3. Diminutive polyps in the left colon, status post removal. 4. [id number] left-sided diverticulosis. 5. No significant hemorrhoids. 6. No blood seen in the GI tract. DESCRIPTION OF PROCEDURE: The procedure, its risks, indications, alternatives, and possible complications were explained to the patient and informed consent was obtained. The patient was then sedated in the left lateral decubitus position. A diagnostic colonoscope was introduced into the rectum after rectal exam was done and advanced to the cecum. The cecum was identified by the appearance of the ileocecal valve. The colonoscope was then gradually withdrawn and the mucosa examined carefully. Examination of the colonic mucosa revealed the above-mentioned findings and procedures. Retroflexed view of the rectum was unremarkable. The colonoscope was removed. The patient was sent to recovery in good condition. COMPLICATIONS: None. RECOMMENDATIONS: 1. Follow up biopsy results. 2. Resume oral diet. 3. Monitor for further episodes of bleeding. Zak Alaniz M.D. DR: ROCK JOB#: [id number] CC:
== END 2018-12-30 14:25 | disposition home or self-care (01) | DRG 394 ==
LOC: 3E 19:45
DX: K64.9 Unspecified hemorrhoids (principal); D61.818 Other pancytopenia; K57.90 Diverticulosis of intestine, part unspecified, without perforation or abscess without bleeding; I13.10 Hypertensive heart and chronic kidney disease without heart failure, with stage 1 through stage 4 chronic kidney disease, or unspecified chronic kidney disease; K63.5 Polyp of colon; N40.0 Benign prostatic hyperplasia without lower urinary tract symptoms; J44.9 Chronic obstructive pulmonary disease, unspecified; N18.9 Chronic kidney disease, unspecified; G89.29 Other chronic pain; M54.5 Low back pain; F17.200 Nicotine dependence, unspecified, uncomplicated; Z85.46 Personal history of malignant neoplasm of prostate; Z92.3 Personal history of irradiation; E11.9 Type 2 diabetes mellitus without complications; E11.22 Type 2 diabetes mellitus with diabetic chronic kidney disease
CPT/HCPCS: 36415; 80048; 81001; 82378; 82550; 82607; 82746; 82962; 83540; 83550; 83615; 83735; 84100; 84133; 84300; 84443; 84550; 85007; 85025; 85044; 85060; 85610; 85651; 85730; 86140; 86850; 86870; 86900; 86901; 86904; 86920; 87081; 87086; 87181; 89050; 94003; 94150; J1815